=== PATIENT | male | born 1970 ===

== ENCOUNTER 2024-12-16 09:51 | Inpatient (IN) | payer OTHER ==
[~2024-12-16] VITALS: Ht 182.9 cm; Wt 105.2 kg
[2024-12-16] MEDS ORDERED: ATORVASTATIN CA20 MG (10:35)
[2024-12-16] MEDS ORDERED: TOPROL XL50 M1 PO (10:36)
[2024-12-16] MEDS ORDERED: JANUMET 50-1,01 EACH PO (10:36)
[2024-12-16 13:50] LABS: INR 1.15; PROTHROMBIN TIME 12.4 SECONDS (9.0-11.5)
[2024-12-25] MEDS ORDERED: LIDOCAINE HCL 1%/EPINEPHRINE 20ML VIAL IJ ONE (13:50)
[2024-12-25] MEDS ORDERED: BUPIVACAINE HCL/Mpf 0.5% 10ML VIAL ONE (13:50)
[2024-12-25] MEDS ORDERED: CEFTRIAXONE SODIUM 2,000 MG VIAL ONE (15:27)
[2024-12-25] MEDS ORDERED: METRONIDAZOLE/SODIUM CHLORIDE 500 MG/100 ML PIGGYBACK IV ONE ×2 (15:27)
[2024-12-25] MEDS ORDERED: SUGAMMADEX SODIUM 200 MG/2 ML VIAL IV ONE (16:09)
[2024-12-25] MEDS ORDERED: MORPHINE SULFATE 4 MG/ML CARTRIDGE IV PRN (16:45)
[2024-12-25] MEDS ORDERED: RINGERS SOLUTION,LACTATED 1,000 ML IV SCH (16:45)
[2024-12-25] MEDS ORDERED: ONDANSETRON HCL 2 MG/ML VIAL IV PRN (16:45)
[2024-12-25] MEDS ORDERED: OxyCODONE HCL 5 MG TABLET (ROXICODONE) PO PRN (16:45)
[2024-12-25] MEDS ORDERED: METOCLOPRAMIDE HCL 5 MG/ML VIAL IV SCH (17:00)
[2024-12-25] MEDS ORDERED: POLYETHYLENE GLYCOL 3350 17 GM BLIST.PACK PO SCH (17:00)
[2024-12-25] MEDS ORDERED: CELECOXIB 200 MG CAPSULE PO SCH (17:00)
[2024-12-25] MEDS ORDERED: HYOSCYAMINE SULFATE 0.125 MG TAB.SUBL SL SCH (17:00)
[2024-12-25] MEDS ORDERED: SIMETHICONE 125 MG CAPSULE PO SCH (17:00)
[2024-12-25] MEDS ORDERED: GABAPENTIN 300 MG CAPSULE PO SCH (17:00)
[2024-12-25 17:33] LABS: HEMATOCRIT 50.2 % (39.0-48.0); HEMOGLOBIN 16.8 g/dL (13-16.00); MEAN CELL VOLUME 93.2 fL (80.0-100.00); MEAN CORPUSCULAR HEMOGLOBIN 31.1 pg (27.00-32.0); MEAN CORPUSCULAR HGB CONC 33.3 g/dl (32.0-36.0); PLATELET COUNT 194 K/uL (150-450); RED BLOOD COUNT 5.39 M/uL (4.00-6.00); RED CELL DISTRIBUTION WIDTH 13.6 % (11.5-14.5)
[2024-12-25] MEDS ORDERED: METOCLOPRAMIDE HCL 5 MG/ML VIAL ONE (17:53)
[2024-12-25 18:18] VITALS: BP 158/58; O2SAT 95
[2024-12-25] MEDS ORDERED: ACETAMINOPHEN 500 MG GEL..CAP PO SCH (20:00)
[2024-12-25] MEDS ORDERED: FAMOTIDINE/PF 20 MG/2 ML VIAL IV PUSH SCH (21:00)
[2024-12-26] VITALS: BP 125/80; O2SAT 91
[2024-12-26] MEDS ORDERED: DEXTROSE 50 % IN WATER 0.5 G/ML DISP.SYRIN IV PRN (05:00)
[2024-12-26] MEDS ORDERED: ENALAPRILAT DIHYDRATE 1.25 MG/ML VIAL IV PRN (05:00)
[2024-12-26] MEDS ORDERED: INSULIN LISPRO 1,000 UNIT/10 ML UNITS SUBCUTANEO PRN (05:00)
[2024-12-26 06:58] LABS: HEMATOCRIT 47.7 % (39.0-48.0); MEAN CELL VOLUME 90.1 fL (80.0-100.00); MEAN CORPUSCULAR HGB CONC 35.7 g/dl (32.0-36.0); PLATELET COUNT 164 K/uL (150-450); RED BLOOD COUNT 5.29 M/uL (4.00-6.00); RED CELL DISTRIBUTION WIDTH 13.3 % (11.5-14.5)
[2024-12-26 07:06] LABS: MEAN CORPUSCULAR HEMOGLOBIN 32.1 pg (27.00-32.0)
[2024-12-26 07:12] LABS: ALBUMIN 3.5 gm/dL (3.4-5.0); CALCIUM 8.8 mg/dL (8.5-10.1); CREATININE SERUM 1.09 mg/dL (0.70-1.30); GFR 70.5; MAGNESIUM 1.7 mg/dL (1.8-2.4); PHOSPHOROUS 3.6 mg/dL (2.5-4.9); POTASSIUM 4.26 mEq/L (3.5-5.1)
[2024-12-26 08:27] VITALS: BP 144/93; O2SAT 95
[2024-12-26] MEDS ORDERED: LACTULOSE 20 G/30 ML BLIST.PACK PO SCH (09:00)
[2024-12-26] MEDS ORDERED: LACTOBACILLUS ACIDOPHILUS 1 CAP CAP PO SCH (09:00)
[2024-12-26] MEDS ORDERED: METOPROLOL SUCCINATE 50 MG TAB.SR.24H PO SCH (09:00)
[2024-12-26] MEDS ORDERED: IRBESARTAN 75 MG TABLET PO SCH (09:00)
[2024-12-26 09:40] LABS: ABG PH 7.425 (7.35-7.45); ABG PO2 79.5 mmHg (80-100); ABG pCO2 39.5 mmHg (35-45)
[2024-12-26 09:41] LABS: BICARBONATE 25.3 mmol/l (23-25); Tco2 26.5 mmol/l; allen test SATISFACTORY; puncture site RADIAL RIGHT
[2024-12-26 09:42] LABS: o2 24 %
[2024-12-26] MEDS ORDERED: MAGNESIUM SULFATE IN WATER 50 ML IV NR (11:00)
[2024-12-26] MEDS ORDERED: ATORVASTATIN CALCIUM 20 MG TABLET PO SCH (17:00)
[2024-12-26] MEDS ORDERED: ENOXAPARIN SODIUM 40 MG/0.4 ML SYRINGE SUBCUTANEO SCH (17:00)
[2024-12-26 19:52] VITALS: BP 150/100; O2SAT 96
[2024-12-27 00:50] VITALS: BP 125/83; O2SAT 96
[2024-12-27 06:45] LABS: HEMATOCRIT 48.2 % (39.0-48.0); HEMOGLOBIN 16.9 g/dL (13-16.00); MEAN CELL VOLUME 91.7 fL (80.0-100.00); MEAN CORPUSCULAR HEMOGLOBIN 32.2 pg (27.00-32.0); MEAN CORPUSCULAR HGB CONC 35.1 g/dl (32.0-36.0); PLATELET COUNT 158 K/uL (150-450); RED BLOOD COUNT 5.25 M/uL (4.00-6.00); RED CELL DISTRIBUTION WIDTH 13.4 % (11.5-14.5)
[2024-12-27 07:15] LABS: CALCIUM 8.6 mg/dL (8.5-10.1); CREATININE SERUM 0.97 mg/dL (0.70-1.30); GFR 80.65; POTASSIUM 4.49 mEq/L (3.5-5.1)
[2024-12-27 07:42] LABS: PHOSPHOROUS 1.9 mg/dL (2.5-4.9)
[2024-12-27 08:00] VITALS: BP 143/91; O2SAT 96
[2024-12-27] MEDS ORDERED: ENOXAPARIN SODIUM 40 MG/0.4 ML SYRINGE SUBCUTANEO SCH (09:00)
[2024-12-27] MEDS ORDERED: POTASSIUM PHOS,M-BASIC-D-BASIC 3 MM/ML VIAL IV ONE (10:00)
== END 2024-12-27 17:05 | disposition home or self-care (01) | DRG 331 ==
LOC: O/R 12-25 08:48 → LDR 12-25 11:45 → SURH 12-25 17:22
PROVIDERS: Internal Medicine Geriatric Medicine; ADMIT Colon & Rectal Surgery; ATTEND Colon & Rectal Surgery
PROC: 07BB4ZZ Excision of Mesenteric Lymphatic, Percutaneous Endoscopic Approach (ICD-10-PCS; 2024-12-25)
PROC: 0DTF4ZZ Resection of Right Large Intestine, Percutaneous Endoscopic Approach (ICD-10-PCS; principal; 2024-12-25 12:00)
DX: D12.0 Benign neoplasm of cecum (principal); E66.01 Morbid (severe) obesity due to excess calories; G47.30 Sleep apnea, unspecified; R59.0 Localized enlarged lymph nodes